=== PATIENT | male | born 1960 | race Caucasian/White ===

== ENCOUNTER 2017-08-06 14:29 | Emergency (ER) | payer OTHER ==
[2017-08-06] MEDS ORDERED: MEPERIDINE HCL 25 MG/0.5 ML ONE (15:17)
--- NOTE | 2017-08-06 15:17 | RAD REPORT ---
EXAM DESCRIPTION: CT - Stone Protocol - 08/06/2017 2:57 pm CLINICAL HISTORY: Flank pain. COMPARISON: 08/03/2016 TECHNIQUE: Axial images were obtained without oral or IV contrast. Lack of contrast limits solid org an and vascular assessment. The [id number] spans the entirety of the system partially obscuring uppermost abdomen and lung bases. Coronal reformatted images were obtained and reviewed. All CT scans are performed using dose optimization technique as appropriate and may include automated exposure control or mA/KV adjustment according to patient size. FINDINGS: The lower lung rodriguez are clear. Cholecystectomy clips. Imaged portions of the liver and spleen show no suspicious findings on non-contrast imaging. The panc reas and adrenal glands are normal. No pathologic lymphadenopathy in the abdomen or pelvis. No urinary tract stones or obstructive uropathy. No bowel obstruction, free air, free fluid or abscess. Normal appendix noted. No significant bony abnormality. IMPRESSION: No urinary tract stones or obstructive uropathy.
[2017-08-06 15:31] LABS: Absolute Lymphocytes (CBC) 1.3 K/uL (0.7-4.9); Absolute Monocytes 0.3 K/uL (0.1-1.3); Absolute Neutrophil 4.8 K/uL (1.8-8.0); Basophils % 0.7 % (0-1.3); Eosinophils % 1.9 % (0-4.4); Hematocrit 45.5 % (39.6-49.0); Lymphocytes % 19.7 % (15.3-44.8); MCV 83.9 fL (80-100); MPV 7.5 fL (7.6-11.3); Monocytes % 4.9 % (3.3-12.3); RBC Red Blood Cell Count 5.42 M/uL (4.33-5.43)
[2017-08-06 15:38] LABS: BUN Blood Urea Nitrogen 17 mg/dL (6-20); Bicarbonate 26 mEq/L (21-31); Glucose Level 171 mg/dL (65-120); Potassium 3.7 mEq/L (3.6-5.0); Sodium Level 136 mEq/L (135-145)
[2017-08-06] MEDS ORDERED: DEXAMETHASONE 10 MG/ML VIAL ONE (15:48)
[2017-08-06] MEDS ORDERED: CYCLOBENZAPRINE 10 MG TAB ONE (15:48)
--- NOTE | 2017-08-06 16:20 | ER ---
Nurse's Notes [facility] Name: Reji Keith Age: 57 yrs Sex: Male : 1960 Arrival Date: 08/06/2017 Time: 14:36 Bed 25 Private MD: Diagnosis: Radiculopathy, lumbar region Presentation: 08/06 14:38 Presenting complaint: Patient states: " I am having pain in my left lower back and goes ph down into my groin and my thigh." Pt reports that pain began Saturday, denies urinary symptoms, intermittent nausea, denies V/D. Transition of care: patient was not received from another setting of care. Onset of symptoms was August 06, 2017. Initial Sepsis Screen: Does the patient meet any 2 criteria? No. Patient's initial sepsis screen is negative. Does the patient have a suspected source of infection? No. Patient's initial sepsis screen is negative. Care prior to arrival: None. 14:38 Method Of Arrival: Ambulatory ph 14:38 Acuity: SELAM 3 ph Historical: - Allergies: 14:41 No Known Allergies; ph - Home Meds: 14:41 None [Active]; ph - PMHx: 14:41 Arthritis; enlarged prostate; ph - PSHx: 14:41 Cholecystectomy; ph - Immunization history:: Adult Immunizations up to date. - Social history:: Smoking status: . - Family history:: not pertinent. - Hospitalizations: : No recent hospitalization is reported. Screenin:59 Abuse screen: Denies threats or abuse. Nutritional screening: No deficits noted. mb3 Tuberculosis screening: No symptoms or risk factors identified. Fall Risk None identified. Assessment: 15:10 General: Appears comfortable, well groomed, Behavior is calm, cooperative, appropriate mb3 for age. Pain: Complains of pain in low back area and left low back Pain radiates to left leg Pain currently is 6 out of 10 on a pain scale. Neuro: No deficits noted. Cardiovascular: No deficits noted. Denies. Respiratory: No deficits noted. Airway is patent Respiratory effort is even, unlabored, Respiratory pattern is regular, symmetrical, Breath sounds are clear bilaterally. GI: Bowel sounds present X 4 quads. Abd is soft and non tender X 4 quads. : No signs and/or symptoms were reported regarding the genitourinary system. EENT: No signs and/or symptoms were reported regarding the EENT system. Derm: No signs and/or symptoms reported regarding the dermatologic system. Musculoskeletal: No signs and/or symptoms reported regarding the musculoskeletal system. Capillary refill < 3 seconds, Range of motion: intact in all extremities. 15:56 Reassessment: Patient appears in no apparent distress at this time. Patient and/or mb3 family updated on plan of care and expected duration. Pain level reassessed. Patient is alert, oriented x 3, equal unlabored respirations, skin warm/dry/pink. Patient states feeling better. Vital Signs: 14:40 BP 165 / 101; Pulse 76; Resp 16; Temp 98.0; Pulse Ox 97% on R/A; Weight 99.79 kg; ph Height 5 ft. 9 in. (175.26 cm); Pain 7/10; 17:03 BP 129 / 91; Pulse 79; Resp 16; Pulse Ox 96% on R/A; mb3 14:40 Body Mass Index 32.49 (99.79 kg, 175.26 cm) ph ED Course: 14:36 Patient arrived in ED. sv 14:36 Floyd Palma MD is Attending Physician. rn 14:40 Triage completed. ph 14:41 Arm band placed on. ph 14:[address] via wheelchair. sj 14:57 CT Stone Protocol In Process Unspecified. EDMS 15:13 Initial lab(s) drawn, by me, sent to lab. Inserted saline lock: 22 gauge in left aj1 forearm, using aseptic technique. Blood collected. 15:45 Flex Ferrara, RN is Primary Nurse. mb3 16:59 Patient has correct armband on for positive identification. Bed in low position. Call mb3 light in reach. Side rails up X 1. 17:00 No provider procedures requiring assistance completed. IV discontinued. mb3 Administered Medications: 15:21 Drug: Demerol 25 mg Route: IVP; Site: left forearm; aj1 15:45 Follow up: Response: No adverse reaction; Pain is decreased mb3 15:53 Drug: Decadron - Dexamethasone 10 mg Route: IVP; Site: left forearm; mb3 17:02 Follow up: Response: No adverse reaction; Pain is decreased mb3 15:53 Drug: Flexeril 10 mg Route: PO; mb3 17:02 Follow up: Response: No adverse reaction mb3 Outcome: 16:20 Discharge ordered by . rn 17:01 Discharged to home ambulatory, with family. mb3 17:01 Condition: stable 17:01 Discharge instructions given to patient, family, Instructed on discharge instructions, follow up and referral plans. medication usage, Demonstrated understanding of instructions, follow-up care, medications, Prescriptions given X 3. 17:03 Patient left the ED. mb3 Signatures: Dispatcher [employer] EDMS Mireya Alejandre RN RN aj1 Cecilia Henriquez RN RN Kayla Long Roman, MD MD rn Hall, Patricia RN RN Flex Myers RN RN mb3
--- NOTE | 2017-08-06 16:20 | EDPHYS ---
Physician Documentation [facility] Name: Reji Keith Age: 57 yrs Sex: Male : 1960 Arrival Date: 08/06/2017 Time: 14:36 Bed 25 Private MD: ED Physician Floyd Palma HPI: 08/06 15:46 This 57 yrs old Male presents to ER via Ambulatory with complaints of rn Possible Kidney Stone. 15:46 The patient presents with pain that is acute. The symptoms are located in the low back. rn 15:51 Onset: The symptoms/episode began/occurred 3 day(s) ago. The pain radiates to the left rn leg. Associated signs and symptoms: Pertinent negatives: abdominal pain, constipation, dysuria, fever, incontinence, nausea, numbness, tingling, urinary retention, vomiting, weakness. Severity of symptoms: At their worst the symptoms were moderate, in the emergency department the symptoms have improved. The patient has not experienced similar symptoms in the past. The patient has not recently seen a physician. Historical: - Allergies: 14:41 No Known Allergies; ph - Home Meds: 14:41 None [Active]; ph - PMHx: 14:41 Arthritis; enlarged prostate; ph - PSHx: 14:41 Cholecystectomy; ph - Immunization history:: Adult Immunizations up to date. - Social history:: Smoking status: . - Family history:: not pertinent. - Hospitalizations: : No recent hospitalization is reported. ROS: 15:51 Constitutional: Negative for fever, chills, and weight loss, Neck: Negative for injury, rn pain, and swelling, Cardiovascular: Negative for chest pain, palpitations, and edema, Respiratory: Negative for shortness of breath, cough, wheezing, and pleuritic chest pain, Abdomen/GI: Negative for abdominal pain, nausea, vomiting, diarrhea, and constipation, Back: Negative for injury MS/Extremity: Negative for injury and deformity, Skin: Negative for injury, rash, and discoloration, Neuro: Negative for headache, weakness, and seizure. Exam: 15:51 Constitutional: This is a well developed, well nourished patient who is awake, alert, rn and in no acute distress. Abdomen/GI: Soft, non-tender, with normal bowel sounds. No distension or tympany. No guarding or rebound. No evidence of tenderness throughout. Back: No spinal tenderness. No costovertebral tenderness. MS/ Extremity: Pulses equal, no cyanosis. Neurovascular intact. Full, normal range of motion. Equal circumference. Neuro: Awake and alert, GCS 15, oriented to person, place, time, and situation. Cranial nerves II-XII grossly intact. Motor strength 5/5 in all extremities. Sensory grossly intact. Vital Signs: 14:40 BP 165 / 101; Pulse 76; Resp 16; Temp 98.0; Pulse Ox 97% on R/A; Weight 99.79 kg; ph Height 5 ft. 9 in. (175.26 cm); Pain 7/10; 17:03 BP 129 / 91; Pulse 79; Resp 16; Pulse Ox 96% on R/A; mb3 14:40 Body Mass Index 32.49 (99.79 kg, 175.26 cm) ph MDM: 14:36 Patient medically screened. rn 16:19 Differential diagnosis: arthritis, Osteoarthritis sprain, Ureterolithiasis rn radiculopathy. Data reviewed: vital signs, nurses notes, lab test result(s), radiologic studies, CT scan, and as a result, I will discharge patient. Counseling: I had a detailed discussion with the patient and/or guardian regarding: the historical points, exam findings, and any diagnostic results supporting the discharge/admit diagnosis, lab results, radiology results, the need for outpatient follow up, to return to the emergency department if symptoms worsen or persist or if there are any questions or concerns that arise at home. Response to treatment: the patient's symptoms have mildly improved after treatment, and as a result, I will discharge patient. Special discussion: I discussed with the patient/guardian in detail that at this point there is no indication for admission to the hospital. It is understood, however, that if the symptoms persist or worsen the patient needs to return immediately for re-evaluation. 08/06 14:46 Order name: CBC with Diff; Complete Time: 16:41 rn 08/06 14:46 Order name: Basic Metabolic Panel; Complete Time: 16:19 rn 08/06 14:46 Order name: CT Stone Protocol; Complete Time: 15:22 rn 08/06 15:33 Order name: CBC Smear Scan; Complete Time: 16:41 EDMS 08/06 16:52 Order name: Urine Dipstick--Ancillary (enter results) em1 08/06 14:46 Order name: IV Start; Complete Time: 15:14 rn 08/06 14:46 Order name: Urine Dipstick-Ancillary (obtain specimen); Complete Time: 16:51 rn Administered Medications: 15:21 Drug: Demerol 25 mg Route: IVP; Site: left forearm; aj1 15:45 Follow up: Response: No adverse reaction; Pain is decreased mb3 15:53 Drug: Decadron - Dexamethasone 10 mg Route: IVP; Site: left forearm; mb3 17:02 Follow up: Response: No adverse reaction; Pain is decreased mb3 15:53 Drug: Flexeril 10 mg Route: PO; mb3 17:02 Follow up: Response: No adverse reaction mb3 Disposition: 08/06/17 16:20 Discharged to Home. Impression: Radiculopathy, lumbar region. - Condition is Stable. - Discharge Instructions: Lumbosacral Radiculopathy. - Prescriptions for Tylenol- Codeine #3 300-30 mg Oral Tablet - take 1 tablet by ORAL route every 6 hours As needed; 20 tablet. Cyclobenzaprine 10 mg Oral Tablet - take 1 tablet by ORAL route every 8 hours As needed; 20 tablet. Medrol (Canelo) 4 mg Oral Tablets, Dose Pack - take 1 tablet by ORAL route as directed - follow package instructions; 1 packet. - Medication Reconciliation Form, Thank You Letter, Antibiotic Education, Prescription Opioid Use form. - Follow up: Private Physician; When: As needed; Reason: Recheck today's complaints, Re-evaluation by your physician. - Problem is new. - Symptoms have improved. Signatures: Dispatcher [employer] EDMireya Godoy RN RN aj1 Floyd Palma MD MD rn Hall, Patricia, RN RN Flex Myers RN RN mb3 Corrections: (The following items were deleted from the chart) 17:03 16:20 08/06/2017 16:20 Discharged to Home. Impression: Radiculopathy, lumbar region. mb3 Condition is Stable. Forms are Medication Reconciliation Form, Thank You Letter, Antibiotic Education, Prescription Opioid Use. Follow up: Private Physician; When: As needed; Reason: Recheck today's complaints, Re-evaluation by your physician. Problem is new. Symptoms have improved. rn
[2017-08-06 16:28] LABS: Blood Morphology Comment NOT SEEN (NOT SEEN); Platelet Estimate ADEQ; Urine White Blood Cell Casts OK
[2017-08-06 17:04] LABS: Urine Blood NEGATIVE (NEG); Urine Glucose NEGATIVE (NEG); Urine Protein NEGATIVE (NEG); Urine Specific Gravity 1.025 (1.005-1.030); Urine pH 6.5 (5.0-7.0)
[2017-08-06 17:07] VITALS: BP 165/101; TEMP 98; O2SAT 97
== END 2017-08-06 17:03 | disposition home or self-care (01) ==
LOC: ER 14:29
DX: M54.16 Radiculopathy, lumbar region (principal); N40.0 Benign prostatic hyperplasia without lower urinary tract symptoms
CPT/HCPCS: 36415; 74176; 76377; 80048; 81003; 85025; 96374; 96375; 99284; J1100; J2175

== ENCOUNTER 2021-08-22 09:16 | Emergency (ER) | payer OTHER ==
--- OUTSIDE RECORDS SUMMARY | 2021-08-22 09:21 | XMS REPORT | Continuity of Care Document ---
:1960 Author Organization Formerly [facility] t Address [address] [place] [address] Care Team Providers Name Role Phone Nikita Grey MD Primary Care Physician Nikita Grey MD Attending Clinician Payers Payer Name Policy Type Policy Number Effective Date Expiration Date S ource Problems Condition Condition Condition Status Onset Resolution Last Treating Co mments Source Name Details Category Date Date Treatment Clinician Date Attention Attention Disease Active 2014-03 Uni vers deficit deficit 2- ity of disorder disorder 00:00: [facility] of adult 00 Medica l Branch Benign Benign Disease Active 2014-03 [facility] prostatic prostatic 2- it[place] hyperpl[place] [facility] Anxiety Anxiety Disease Active 2014-03 [facility] and and 2 [place] Allergies, Adverse Reactions, Alerts This patient has no known allergies or adverse reactions. Social History Social Habit Start Date Stop Date Quantity Comments Source Exposure to Not sure [facility] SARS-CoV-2 (event) Medica l Branch History SDOH [facility] [place] Alcohol Frequency Medical Branch History SDOH [facility] [place] Alcohol Std Drinks Medica l Branch History SDPA [facility] [place] Alcohol Binge Medical Bra [facility] Alcohol intake 2020-10-24 2020-10-24 0 /d [facility] 00:00:00 00:00:00 Medical Branch Tobacco use and 2015-03-16 2015-03-16 Never used [facility] exposure 00:00:00 00:00:00 Medical Branch Alcohol Comment 2015-03-16 2015-03-16 occ [facility] 00:00:00 00:00:00 Medical Branch Sex Ass[birth year] [facility] 00:00:00 00:00:00 Medical Branch Smoking Status Start Date Stop Date Source Never smoker [facility] Medical Branch Medications Ordered Filled Start Stop Current Ordering Indication Dosage Frequency Signature Comments Components Source Medication Medication Date Date Medication? Clinician (SIG) Name Name dextroamphe Yes [id number] 30mg Take 1 Univers tamine-amph 5-10 tablet by ity of etamine 00:00: [place] (ADDERALL) 00 daily. Medical 30 mg Branch tablet dextroamphe Yes [id number] 30mg Take 1 Univers tamine-amph 4-06 tablet by ity of etamine 00:00: [place] (ADDERALL) 00 daily. Medical 30 mg Branch tablet sildenafiL 2021-0 Yes [id number] 100mg Take 1 Univers 100 mg 4-06 tablet by ity of tablet 00:00: mouth [place] 00 needed Medical (take one Branch hour prior to sexual activitiy) . dextroamphe 2021-0 Yes [id number] 30mg Take 1 Univers tamine-amph 4-06 tablet by ity of etamine 00:00: mouth [place] (ADDERALL) 00 daily. Medical 30 mg Branch tablet sildenafiL 2021-0 Yes [id number] 100mg Take 1 Univers 100 mg 4-06 tablet by ity of tablet 00:00: mouth [place] 00 needed Medical (take one Branch hour prior to sexual activitiy) . sildenafiL 2021-0 Yes [id number] 100mg Take 1 Univers 100 mg 4-06 tablet by ity of tablet 00:00: mouth as [place] 00 needed Medical (take one Branch hour prior to sexual activitiy) . dextroamphe 2021-2021- No [id number] 30mg Take 1 Univers tamine-amph 4-06 05-10 tablet by it y of etamine 00:00: 00:00 mouth [place] (ADDERALL) 00 :00 daily. Medical 30 mg Branch tablet dextroamphe 2021-2021- No [id number] 30mg Take 1 Univers tamine-amph 3-07 04- tablet by it y of etamine 00:00: 00:00 mouth [place] (ADDERALL) 00 :00 daily. Medical 30 mg Branch tablet dextroamphe 2021- No [id number] 30mg Take 1 Univers tamine-amph 05-29- tablet by it y of etamine 00:00: 00:00 [facility] [place] (ADDERALL) 00 :00 daily. Medical 30 mg Branch tablet diclofenac 2020-03 Yes [id number] 75mg Take 1 Univers 75 mg EC 2-03 9104 tablet by ity of tablet 00:00: mouth [place] 00 daily. Medical Branch tamsulosin 2020-03 Yes [id number] .4mg Take 1 Univers 0.4 mg 24 2-03 capsule by ity of hr capsule 00:00: mouth at [place] 00 bedtime. Medical Branch SERTraline 2020-03 Yes [id number] 100mg Take 1 Univers 100 mg 2-03 tablet by ity of tablet 00:00: mouth [place] 00 daily. Medical Branch diclofenac 2020-03 Yes [id number] 75mg Take 1 Univers 75 mg EC 2-03 9104 tablet by ity of tablet 00:00: mouth [place] 00 daily. Medical Branch tamsulosin 2020-03 Yes [id number] .4mg Take 1 Univers 0.4 mg 24 2-03 capsule by ity of hr capsule 00:00: mouth at [place] 00 bedtime. Medical Branch SERTraline 2020-03 Yes [id number] 100mg Take 1 Univers 100 mg 2-03 tablet by ity of tablet 00:00: mouth [place] 00 daily. Medical Branch diclofenac 2020-03 Yes [id number] 75mg Take 1 Univers 75 mg EC 2-03 9104 tablet by ity of tablet 00:00: mouth [place] 00 daily. Medical Branch tamsulosin 2020-03 Yes [id number] .4mg Take 1 Univers 0.4 mg 24 2-03 capsule by ity of hr capsule 00:00: mouth at [place] 00 bedtime. Medical Branch SERTraline 2020-03 Yes [id number] 100mg Take 1 Univers 100 mg 2-03 tablet by ity of tablet 00:00: mouth [place] 00 daily. Medical Branch TADALAFIL 5 2020-03- No [id number] 5mg TAKE 1 Univers mg tablet 0-04 04-06 TABLET BY ity of 00:00: 00:00 MOUTH [place] 00 :00 NEEDED FOR [facility] ERECTILE Branch DYSFUNCTIO N TADALAFIL 5 2020-03- No [id number] 5mg TAKE 1 Univers mg tablet 06-28 TABLET BY ity of 00:00: 00:00 MOUTH [place] 00 :00 NEEDED FOR [facility] ERECTILE Branch DYSFUNCTIO N Immunizations Ordered Filled Immunization Date Status Comments Sour e Immunization Name Name SARS-COV-2 COVID-19 2020-06-01 Completed Unive rsity of PFIZER VACCINE 00:00:00 [facility] SARS-COV-2 COVID-19 2020-06-01 Completed Unive rsity of PFIZER VACCINE 00:00:00 [facility] SARS-COV-2 COVID-19 2020-06-01 Completed Unive rsity of PFIZER VACCINE 00:00:00 [facility] Vital Signs Vital Name Observation Time Observation Value Comments Source Systolic blood 2021-06-28 21:14:00 149 mm[Hg] [facility] Diastolic blood 2021-06-28 21:14:00 87 mm[Hg] Unive rsity of [facility] Heart rate 2021-06-28 21:10:00 87 /min [facility] Body height 2021-06-28 21:10:00 175.3 cm [facility] Body weight 2021-06-28 21:10:00 93.895 kg [facility] BMI 2021-06-28 21:10:00 30.57 kg/m2 [facility] Procedures This patient has no known procedures. Encounters Start End Encounter Admission Attending Care Care Encounter Source Date/Time Date/Time Type Type Clinicians Facility Department ID 2021-08-01 2021-08-01 Refill DAYANNA Grey [id number] Univers 00:00:00 00:00:00 [facility] [id number] it y of Nikita ANAYA [id number] [place] RIA?BLEA [id number] [address] MEDICAL OFFICE BUILDING 2021-06-28 2021-06-28 Office DAYANNA Grey [id number] Univers 16:00:00 16:15:00 Visit [facility] [id number] it y of Nikita ANAYA [id number] [place] RIA?BLEA [id number] [facility] [facility] [address] MEDICAL OFFICE BUILDING Results This patient has no known results.
--- NOTE | 2021-08-22 10:06 | RAD REPORT ---
EXAM DESCRIPTION: RAD - Shoulder Right 2 View - 08/22/2021 10:01 am CLINICAL HISTORY: PAIN COMPARISON: No comparisons FINDINGS/IMPRESSION: No acute fracture. No malalignment. No significant focal degenerative changes. Calcified nodules overlying the right upper lobe.
--- NOTE | 2021-08-22 10:36 | EDPHYS ---
Physician Documentation [facility] Name: Reji Keith Age: 61 yrs Sex: Male : 1960 Arrival Date: 08/22/2021 Time: 09:20 Bed 10 Private MD: Emanuel Grey ED Physician Benji Neves HPI: 08/22 10:00 This 61 yrs old Male presents to ER via Ambulatory with complaints of Shoulder Injury. ms3 10:00 The patient or guardian complains of pain, that is acute. right shoulder. Context: The ms3 problem was sustained at home, resulted from a fall, from a standing position, The patient reports no decreased range of motion. The patient reports no obvious deformity. Onset: The symptoms/episode began/occurred last night. Modifying factors: the symptoms are alleviated by nothing. The symptoms are aggravated by movement. Associated signs and symptoms: Pertinent negatives: chest pain, neck pain. Severity of symptoms: At their worst the symptoms were severe, in the emergency department the symptoms have improved, moderately. Historical: - Allergies: :28 No Known Allergies; iw - PMHx: :28 Arthritis; enlarged prostate; iw - Social history:: Smoking status: . ROS: 10:00 Constitutional: Negative for fever, and chills. Neck: Negative for injury, pain, and ms3 swelling, Cardiovascular: Negative for chest pain, and palpitations. Respiratory: Negative for shortness of breath, cough, wheezing, and pleuritic chest pain, Abdomen/GI: Negative for abdominal pain, nausea, vomiting, diarrhea, and constipation, Skin: Negative for injury, rash, and discoloration. 10:00 MS/extremity: Positive for pain, tenderness. 10:00 All other systems are negative. Exam: 10:00 Constitutional: This is a well developed, well nourished patient who is awake, alert, ms3 and in no acute distress. Neck: Trachea midline, no cervical lymphadenopathy. Supple, full range of motion without nuchal rigidity, or vertebral point tenderness. No Meningismus. Chest/axilla: Normal chest wall appearance and motion. Nontender with no deformity. Cardiovascular: Regular rate and rhythm with a normal S1 and S2. No gallops, murmurs, or rubs. Normal PMI, no JVD. No pulse deficits. Respiratory: Lungs have equal breath sounds bilaterally, clear to auscultation and percussion. No rales, rhonchi or wheezes noted. No increased work of breathing, no retractions or nasal flaring. Abdomen/GI: Soft, non-tender, with normal bowel sounds. No distension or tympany. No guarding or rebound. No evidence of tenderness throughout. 10:00 Skin: Warm, dry with normal turgor. Normal color with no rashes, no lesions, and no evidence of cellulitis. Psych: Awake, alert, with orientation to person, place and time. Behavior, mood, and affect are within normal limits. 10:00 Musculoskeletal/extremity: Extremities: noted in the right shoulder: pain, tenderness. Vital Signs: 09:26 BP 181 / 96; Pulse 80; Resp 16; Temp 98.2; Pulse Ox 97% on R/A; Weight 95.25 kg; Height iw 5 ft. 9 in. (175.26 cm); Pain 9; 09:26 Body Mass Index 31.01 (95.25 kg, 175.26 cm) iw MDM: 09:35 Patient medically screened. ms3 10:00 Differential diagnosis: humeral head fracture, glenoid fracture, AC Separation vs ms3 Clavicle fracture. 10:47 Data reviewed: vital signs, nurses notes, radiologic studies, plain films. Data ms3 interpreted: Pulse oximetry: on room air is 97 %. Interpretation: normal. Counseling: I had a detailed discussion with the patient and/or guardian regarding: the historical points, exam findings, and any diagnostic results supporting the discharge/admit diagnosis, radiology results, the need for outpatient follow up, to return to the emergency department if symptoms worsen or persist or if there are any questions or concerns that arise at home. ED course: Discussed right shoulder x-ray, physical exam findings with patient. Patient to follow-up with in 2 to 3 days. Patient understands and agrees with plan. All questions were answered. Return precautions discussed include worsening symptoms, or any other concerns. On reevaluation patient symptoms improved, patient is alert and oriented x4, no apparent distress, nontoxic, ambulatory in emergency department, tolerating p.o.. 08/22 09:35 Order name: Shoulder Right (2 View) XRAY; Complete Time: 10:29 ms3 08/22 10:36 Order name: Sling; Complete Time: 10:49 ms3 Administered Medications: No medications were administered Disposition Summary: 08/22/21 10:35 Discharge Ordered Location: Home ms3 Problem: new ms3 Symptoms: are unchanged ms3 Condition: Stable ms3 Diagnosis - Pain in right shoulder ms3 - Fall on same level, unspecified ms3 Followup: ms3 - With: Edgar Contreras MD - When: 2 - 3 days - Reason: Recheck today's complaints Discharge Instructions: - Discharge Summary Sheet ms3 - Musculoskeletal Pain ms3 - Shoulder Pain ms3 Forms: - Medication Reconciliation Form ms3 - Thank You Letter ms3 - Antibiotic Education ms3 - Prescription Opioid Use ms3 Prescriptions: - Ibuprofen 600 mg Oral Tablet - take 1 tablet by ORAL route every 6 hours As needed take with food; 30 tablet; ms3 Refills: 0, Product Selection Permitted Signatures: Dispatcher [employer] Clementine James RN RN iw Sims, Marcus, DO DO ms3
--- NOTE | 2021-08-22 10:36 | ER ---
Nurse's Notes [facility] Name: Reji Keith Age: 61 yrs Sex: Male : 1960 Arrival Date: 08/22/2021 Time: 09:20 Bed 10 Private MD: Emanuel Grey Diagnosis: Pain in right shoulder;Fall on same level, unspecified Presentation: 08/22 09:26 Chief complaint: Patient states: slipped and fell on right shoulder last night while iw cleaning his pool. Coronavirus screen: At this time, the client does not indicate any symptoms associated with coronavirus-19. Ebola Screen: Patient negative for fever greater than or equal to 101.5 degrees Fahrenheit, and additional compatible Ebola Virus Disease symptoms Patient denies exposure to infectious person. Patient denies travel to an Ebola-affected area in the 21 days before illness onset. No symptoms or risks identified at this time. Initial Sepsis Screen: Does the patient meet any 2 criteria? No. Patient's initial sepsis screen is negative. Does the patient have a suspected source of infection? No. Patient's initial sepsis screen is negative. Risk Assessment: Do you want to hurt yourself or someone else? Patient reports no desire to harm self or others. Onset of symptoms was August 21, 2021. 09:26 Method Of Arrival: Ambulatory iw 09: Acuity: SELAM 4 iw Historical: - Allergies: : No Known Allergies; iw - PMHx: : Arthritis; enlarged prostate; iw - Social history:: Smoking status: . Screenin: Abuse screen: Denies threats or abuse. Denies injuries from another. Nutritional iw screening: No deficits noted. Tuberculosis screening: No symptoms or risk factors identified. Fall Risk None identified. Assessment: :30 General: Appears in no apparent distress. Behavior is calm, cooperative. Pain: iw Complains of pain in anterior aspect of right shoulder and posterior aspect of right shoulder. Musculoskeletal: Range of motion: limited in right shoulder. Vital Signs: : BP 181 / 96; Pulse 80; Resp 16; Temp 98.2; Pulse Ox 97% on R/A; Weight 95.25 kg; Height iw 5 ft. 9 in. (175.26 cm); Pain 9/10; : Body Mass Index 31.01 (95.25 kg, 175.26 cm) iw ED Course: 09:20 Patient arrived in ED. mr 09:20 Emanuel Grey MD is Private Physician. mr 09:22 Benji Neves DO is Attending Physician. ms3 09:28 Triage completed. iw 09:28 Arm band placed on. iw 09:30 Clementine Macdonald, RN is Primary Nurse. iw 09:31 No provider procedures requiring assistance completed. Patient did not have IV access iw during this emergency room visit. 10:02 Shoulder Right (2 View) XRAY In Process Unspecified. EDMS 10:35 Edgar Contreras MD is Referral Physician. ms3 Administered Medications: No medications were administered Outcome: 10:35 Discharge ordered by . ms3 10:49 Patient left the ED. iw Signatures: Dispatcher [employer] EDOH VincenzoTamika mr Clementine Macdonald, RN RN iw Benji Neves DO DO ms3
[2021-08-22 10:56] VITALS: BP 181/96; TEMP 98.2; O2SAT 97
== END 2021-08-22 10:49 | disposition home or self-care (01) ==
LOC: ER 09:16
DX: M25.511 Pain in right shoulder (principal); W18.30XA Fall on same level, unspecified, initial encounter
CPT/HCPCS: 99282

== ENCOUNTER 2022-04-28 17:06 | Emergency (ER) | payer OTHER ==
--- OUTSIDE RECORDS SUMMARY | 2022-04-28 17:09 | XMS REPORT | Continuity of Care Document ---
:1960 Author Organization [facility] t Address [address] [place] [address] Care Team Providers Name Role Phone DELORES GREY Primary Care Physician Unavailable DELORES GREY Attending Clinician Unavailable Delores Grey MD Attending Clinician Doctor Unassigned, [place] Attending Clinician Unavailable Too Smiley DO Attending Clinician Romulo Larsen Attending Clinician Lacie SPEARS, Bill Coffman Attending Clinician Payers Payer Name Policy Type Policy Number Effective Date Expiration Date Cheryl arana [employer] [id number] 2018 OUT OF NETWORK 00:00:00 Problems Condition Condition Condition Status Onset Resolution Last Treating Co mments Source Name Details Category Date Date Treatment Clinician Date Attention Attention Disease Active 2014-03 Uni vers deficit deficit 2-23 ity of disorder disorder 00:00: [place] of adult of adult 00 Medica l Branch Benign Benign Disease Active 2014-03 Univers prostatic prostatic 2- it[place] of hyper[place] Anxiety Anxiety Disease Active 2014-03 Univers and and 2 [place] depression [place] Allergies, Adverse Reactions, Alerts Allergy Allergy Status Severity Reaction(s) Onset Inactive Treating Comm ents Source Name Type Date Date Clinician NO KNOWN Drug Active Univers ALLERGIE Class ity of S [facility] Social History Social Habit Start Date Stop Date Quantity Comments Source History [facility] o f Alcohol Frequency [place] M edical Branch History [facility] o f Alcohol Std [place] Medical Drinks Branch History [facility] o f Alcohol Binge [place] Medic al Branch Exposure to 2022-03-25 2022-04-04 Not sure University of SARS-CoV-2 00:00:00 15:37:00 [facility] (event) Branch Alcohol intake 2020-10-24 2020-10-24 0 /d University of 00:00:00 00:00:00 [facility] Tobacco use and 2015-03-16 2015-03-16 Smokeless tobacco Un iversity of exposure 00:00:00 00:00:00 non-user [facility] Alcohol Comment 2015-03-16 2015-03-16 occ Universit y of 00:00:00 00:00:00 [facility] Sex Ass[birth year] At [birth year] Universit y of 00:00:00 00:00:00 [facility] Smoking Status Start Date Stop Date Source Never smoked tobacco [facility] Medications Ordered Filled Start Stop Current Ordering Indication Dosage Frequency Signature Comments Components Source Medication Medication Date Date Medication? Clinician (SIG) Name Name amphetamine Yes [id number] 30mg Take 1 Univers -dextroamph 1-11 capsule by it y of etamine 00:00: mouth [place] (ADDERALL 00 every Medical XR) 30 mg morning. Branch 24 hr capsule amphetamine Yes [id number] 30mg Take 1 Univers -dextroamph 1-11 capsule by it y of etamine 00:00: mouth [place] (ADDERALL 00 every Medical XR) 30 mg morning. Branch 24 hr capsule TAMSULOSIN Yes [id number] TAKE 1 Univers 0.4 mg 24 -09 CAPSULE BY ity of hr capsule 00:00: MOUTH [place] 00 EVERYDAY Medical AT BEDTIME Branch TAMSULOSIN Yes [id number] TAKE 1 Univers 0.4 mg 24 -09 CAPSULE BY ity of hr capsule 00:00: MOUTH [place] 00 EVERYDAY Medical AT BEDTIME Branch TAMSULOSIN Yes [id number] TAKE 1 Univers 0.4 mg 24 -09 CAPSULE BY ity of hr capsule 00:00: MOUTH 00 EVERYDAY Medical AT BEDTIME Branch dextroamphe 2021-03 Yes [id number] 30mg Take 1 Univers tamine-amph 2-08 tablet by ity of etamine 00:00: mouth in [place] (ADDERALL) 00 the Medical 30 mg morning. Branch tablet diclofenac 2021-03 Yes [id number] 75mg Take 1 Univers 75 mg EC 2-08 9104 tablet by ity of tablet 00:00: mouth in [place] 00 the Medical morning. Branch dextroamphe 2021-03 Yes [id number] 30mg Take 1 Univers tamine-amph 2-08 tablet by ity of etamine 00:00: mouth in [place] (ADDERALL) 00 the Medical 30 mg morning. Branch tablet diclofenac 2021-03 Yes [id number] 75mg Take 1 Univers 75 mg EC 2-08 9104 tablet by ity of tablet 00:00: mouth in [place] 00 the Medical morning. Branch dextroamphe 2021-03 Yes [id number] 30mg Take 1 Univers tamine-amph 2-08 tablet by ity of etamine 00:00: mouth in [place] [facility] the Medical 30 mg morning. Branch tablet diclofenac 2021-03 Yes [id number] 75mg Take 1 Univers 75 mg EC 2-08 9104 tablet by ity of tablet 00:00: mouth in [place] 00 the Medical morning. Branch diclofenac 2021-03 Yes [id number] 75mg Take 1 Univers 75 mg EC 2-08 9104 tablet by ity of tablet 00:00: mouth in [place] 00 the Medical morning. Branch diclofenac 2021-03 Yes [id number] 75mg Take 1 Univers 75 mg EC 2-08 9104 tablet by ity of tablet 00:00: mouth in [place] 00 the Medical morning. Branch dextroamphe 2021-03- No [id number] 30mg Take 1 Univers tamine-amph 2-08 -11 tablet by it y of etamine 00:00: 00:00 mouth in [place] (ADDERALL) 00 :00 the Medical 30 mg morning. Branch tablet dextroamphe 2021-03- No [id number] 30mg Take 1 Univers tamine-amph 2-08 -11 tablet by it y of etamine 00:00: 00:00 mouth in [place] (ADDERALL) 00 :00 the Medical 30 mg morning. Branch tablet dextroamphe 2021-03 Yes [id number] 30mg Take 1 Univers tamine-amph 1-10 tablet by ity of etamine 00:00: mouth in [place] (ADDERALL) 00 the Medical 30 mg morning. Branch tablet dextroamphe 2021-03- No [id number] 30mg Take 1 Univers tamine-amph 1-10 12-08 tablet by it y of etamine 00:00: 00:00 mouth in [place] (ADDERALL) 00 :00 the Medical 30 mg morning. Branch tablet dextroamphe 2021-03- No [id number] 30mg Take 1 Univers tamine-amph 0-11 11-10 tablet by it y of etamine 00:00: 00:00 mouth in [place] (ADDERALL) 00 :00 the Medical 30 mg morning. Branch tablet dextroamphe 2021-0 Yes [id number] 30mg Take 1 Univers tamine-amph 9-12 tablet by ity of etamine 00:00: mouth in [place] [facility] the Medical 30 mg morning. Branch tablet dextroamphe 2021-0 Yes [id number] 30mg Take 1 Univers tamine-amph 9-12 tablet by ity of etamine 00:00: mouth in [place] (ADDERALL) 00 the Medical 30 mg morning. Branch tablet DICLOFENAC 2021-0 Yes [id number] TAKE 1 Univers 75 mg EC 8-31 9104 TABLET BY ity of tablet 00:00: MOUTH [place] 00 EVERY DAY Medical Branch DICLOFENAC 2021-0 Yes [id number] TAKE 1 Univers 75 mg EC 8-31 9104 TABLET BY ity of tablet 00:00: MOUTH [place] 00 EVERY DAY Medical Branch DICLOFENAC 2-0 Yes [id number] TAKE 1 Univers 75 mg EC 8-31 9104 TABLET BY ity of tablet 00:00: MOUTH [place] 00 EVERY DAY Medical Branch DICLOFENAC 2-0 2021- No [id number] TAKE 1 Univers 75 mg EC 8-31 12-08 9104 TABLET BY ity o f tablet 00:00: 00:00 MOUTH [place] 00 :00 EVERY DAY Medical Branch dextroamphe 2021-0 2021- No [id number] 30mg Take 1 Univers tamine-amph 8-08 09-12 tablet by it y of etamine 00:00: 00:00 mouth in [place] (ADDERALL) 00 :00 the Medical 30 mg morning. Branch tablet sildenafiL 2021-0 Yes [id number] 100mg Take 1 Univers 100 mg 4-06 tablet by ity of tablet 00:00: mouth as [place] 00 needed Medical (take one Branch hour prior to sexual activitiy) . sildenafiL 2021-0 Yes [id number] 100mg Take 1 Univers 100 mg 4-06 tablet by ity of tablet 00:00: mouth as [place] 00 needed Medical (take one Branch hour prior to sexual activitiy) . sildenafiL 2021-0 Yes [id number] 100mg Take 1 Univers 100 mg 4-06 tablet by ity of tablet 00:00: mouth as [place] 00 needed Medical (take one Branch hour prior to sexual activitiy) . sildenafiL 2021-0 Yes [id number] 100mg Take 1 Univers 100 mg 4-06 tablet by ity of tablet 00:00: mouth as [place] 00 needed Medical (take one Branch hour prior to sexual activitiy) . sildenafiL 2021-0 Yes [id number] 100mg Take 1 Univers 100 mg 4-06 tablet by ity of tablet 00:00: mouth as [place] 00 needed Medical (take one Branch hour prior to sexual activitiy) . sildenafiL 2021-0 Yes [id number] 100mg Take 1 Univers 100 mg 4-06 tablet by ity of tablet 00:00: mouth as [place] 00 needed Medical (take one Branch hour prior to sexual activitiy) . sildenafiL 2021-0 Yes [id number] 100mg Take 1 Univers 100 mg 4-06 tablet by ity of tablet 00:00: mouth as [place] 00 needed Medical (take one Branch hour prior to sexual activitiy) . sildenafiL 2021-0 Yes [id number] 100mg Take 1 Univers 100 mg 4-06 tablet by ity of tablet 00:00: mouth as [place] 00 needed Medical (take one Branch hour prior to sexual activitiy) . tamsulosin 2020-03 Yes [id number] .4mg Take 1 Univers 0.4 mg 24 2-03 capsule by ity of hr capsule 00:00: mouth at [place] 00 bedtime. Medical Branch SERTraline 2020-03 Yes [id number] 100mg Take 1 Univers 100 mg 2-03 tablet by ity of tablet 00:00: mouth [place] 00 daily. Medical Branch tamsulosin 2020-03 Yes [id number] .4mg Take 1 Univers 0.4 mg 24 2-03 capsule by ity of hr capsule 00:00: mouth at [place] 00 bedtime. Medical Branch SERTraline 2020-03 Yes [id number] 100mg Take 1 Univers 100 mg 2-03 tablet by ity of tablet 00:00: mouth [place] 00 daily. Medical Branch tamsulosin 2020-03 Yes [id number] .4mg Take 1 Univers 0.4 mg 24 2-03 capsule by ity of hr capsule 00:00: mouth at [place] 00 bedtime. Medical Branch SERTraline 2020-03 Yes [id number] 100mg Take 1 Univers 100 mg 2-03 tablet by ity of tablet 00:00: mouth [place] 00 daily. Medical Branch tamsulosin 2020-03 Yes [id number] .4mg Take 1 Univers 0.4 mg 24 2-03 capsule by ity of hr capsule 00:00: mouth at [place] 00 bedtime. Medical Branch SERTraline 2020-03 Yes [id number] 100mg Take 1 Univers 100 mg 2-03 tablet by ity of tablet 00:00: mouth [place] 00 daily. Medical Branch tamsulosin 2020-03 Yes [id number] .4mg Take 1 Univers 0.4 mg 24 2-03 capsule by ity of hr capsule 00:00: mouth at [place] 00 bedtime. Medical Branch SERTraline 2020-03 Yes [id number] 100mg Take 1 Univers 100 mg 2-03 tablet by ity of tablet 00:00: mouth [place] 00 daily. Medical Branch SERTraline 2020-03 Yes [id number] 100mg Take 1 Univers 100 mg 2-03 tablet by ity of tablet 00:00: mouth [place] 00 daily. Medical Branch SERTraline 2020-03 Yes [id number] 100mg Take 1 Univers 100 mg 2-03 tablet by ity of tablet 00:00: mouth [place] 00 daily. Medical Branch SERTraline 2020-03 Yes [id number] 100mg Take 1 Univers 100 mg 2-03 tablet by ity of tablet 00:00: mouth [place] 00 daily. Medical Branch tamsulosin 2020-033- No [id number] .4mg Take 1 Univers 0.4 mg 24 2-03 01-09 capsule by ity of hr capsule 00:00: 00:00 [place] :00 bedtime. Medical Branch Immunizations Ordered Filled Immunization Date Status Comments [facility] e Immunization Name Name SARS-COV-2 COVID-19 2020-06-01 Completed Unive rsity of PFIZER VACCINE 00:00:00 [facility] SARS-COV-2 COVID-19 2020-06-01 Completed Unive rsity of PFIZER VACCINE 00:00:00 [facility] SARS-COV-2 COVID-19 2020-06-01 Completed Unive rsity of PFIZER VACCINE 00:00:00 [facility] SARS-COV-2 COVID-19 2020-06-01 Completed Unive rsity of PFIZER VACCINE 00:00:00 [facility] SARS-COV-2 COVID-19 2020-06-01 Completed Unive rsity of PFIZER VACCINE 00:00:00 [facility] SARS-COV-2 COVID-19 2020-06-01 Completed Unive rsity of PFIZER VACCINE 00:00:00 [facility] SARS-COV-2 COVID-19 2020-06-01 Completed Unive rsity of PFIZER VACCINE 00:00:00 [facility] SARS-COV-2 COVID-19 2020-06-01 Completed Unive rsity of PFIZER VACCINE 00:00:00 [facility] Vital Signs Vital Name Observation Time Observation Value Comments Source Systolic blood 2022-04-04 22:01:00 166 mm[Hg] Univer sity of [facility] Diastolic blood 2022-04-04 22:01:00 92 mm[Hg] Unive rsity of [facility] Heart rate 2022-04-04 21:56:00 89 /min [facility] Body height 2022-04-04 21:56:00 175.3 cm [facility] Body weight 2022-04-04 21:56:00 95.255 kg [facility] BMI 2022-04-04 21:56:00 31.01 kg/m2 [facility] Systolic blood 2021-12-04 21:10:00 147 mm[Hg] Univer sity of [facility] Diastolic blood 2021-12-04 21:10:00 86 mm[Hg] Unive rsity of [facility] Heart rate 2021-12-04 21:06:00 89 /min [facility] Body height 2021-12-04 21:06:00 175.3 cm [facility] Body weight 2021-12-04 21:06:00 97.977 kg [facility] BMI 2021-12-04 21:06:00 31.90 kg/m2 [facility] Procedures Procedure Date / Time Performing Clinician Source Performed EXTERNAL PROVIDER RECORDS 2022-03-30 06:01:00 Doctor Ivette, [facility] [place] [facility] PATIENT FINANCIAL 2021-12-04 05:01:00 Doctor Ivette [facility] RESPONSIBILITY - ALL [place] [facility] FORMS Encounters Start End Encounter Admission Attending Care Care Encounter Source Date/Time Date/Time Type Type Clinicians Facility Department ID 2022-08-02 2022-08-02 Outpatient Komal [facility] [id number] Univers 16:30:00 16:30:00 [facility] 2022-04-04 2022-04-04 Office [facility] 1.2.840.114 [id number] Univers 16:00:00 16:15:00 Visit [facility] [id number] it y of [facility] [id number] [place] CÉSAR?BLEA [phone] [address] MEDICAL OFFICE BUILDING 2022-04-04 2022-04-04 Outpatient [facility] [id number] Univers 16:00:00 16:13:03 [facility] 2022-04-01 2022-04-01 Refill [facility] 1.2.840.114 [id number] Univers 00:00:00 00:00:00 [facility] [id number] it y of [facility] [id number] [place] CÉSAR?BLEA [phone] [address] MEDICAL OFFICE BUILDING 2022-03-30 2022-03-30 Orders Doctor LIM 1.2.840.114 [id number] Univers 00:00:00 00:00:00 Only Unassigned, CANDACE [id number] ity of [place] [facility] [id number] [place] [phone] [address] 2022-03-01 2022-03-01 Telephone [facility] 1.2.840.114 [id number] Univers 00:00:00 00:00:00 [facility] [id number] it y of [place] [id number] [place] CÉSAR?BLEA [id number] [address] MEDICAL OFFICE [facility] 2022-01-31 2022[facility]01-31 [facility] 1.2.840.114 [id number] Univers 00:00:00 00:00:00 [facility] [id number] it y of [place] [id number] [place] CÉSAR?BLEA [phone] [address] MEDICAL OFFICE [facility] 2021-12-04 2021-12-04 Outpatient R [facility] [id number] Univers 15:45:00 16:22:27 DELORES [facility] 2021-12-04 2021-12-04 Office [facility] 1.2.840.114 [id number] Univers 15:45:00 16:00:00 Visit [facility] [id number] it y of [place] [id number] [place] CÉSAR?BLEA [phone] [address] OFFICE [facility] 2021-12-04 2021-12-04 Outpatient R [facility] [id number] Univers 15:45:00 15:45:00 DELORES ity [facility] 2021-12-04 2021-12-04 Orders Doctor CARINA 1.2.840.114 [id number] Univers 00:00:00 00:00:00 Only Unassigned, CANDACE [id number] ity of [place] [facility] [id number] [place] [phone] [address] 2021-12-01 2021-12-01 [facility] 1.2.840.114 [id number] Univers 00:00:00 00:00:00 [facility] [id number] it y of [place] [id number] [place] CÉSAR?BLEA [phone] [address] MEDICAL OFFICE [facility] 2021-11-28 2021-11-28 [facility] 1.2.840.114 [id number] Univers 00:00:00 00:00:00 [facility] [id number] it y of [place] [id number] [place] CÉSAR?BLEA [phone] [address] MEDICAL OFFICE [facility] 2021-11-22 2021-11-22 [facility] 1.2.840.114 [id number] Univers 00:00:00 00:00:00 [facility] [id number] it y of [place] [id number] [place] CÉSAR?BLEA [phone] [address] OFFICE [facility] 2021-10-30 2021-10-30 [facility] 1.2.840.114 [id number] Univers 00:00:00 00:00:00 [facility] [id number] it y of [place] [id number] [place] CÉSAR?BLEA [id number] [address] OFFICE [facility] 2021-09-29 2021-09-29 [facility] 1.2.840.114 [id number] Univers 00:00:00 00:00:00 [facility] [id number] it y of [place] [id number] [place] CÉSAR?BLEA [phone] [address] MEDICAL OFFICE [facility] 2021-08-28 2021-08-28 Orders Doctor CARINA 1.2.840.114 [id number] Univers 00:00:00 00:00:00 Only Unassigned, CANDACE [id number] ity of [place] [facility] [id number] [place] [phone] [address] 2021-08-28 2021-08-28 [facility] 1.2.840.114 [id number] Univers 00:00:00 00:00:00 [place] [id number] it y of [place] [id number] [place] CÉSAR?BLEA [id number] [address] MEDICAL OFFICE [facility] 2021-08-24 2021-08-24 [facility] 1.2.840.114 [id number] Univers 00:00:00 00:00:00 [facility] [id number] it y of [place] [id number] [place] CÉSAR?BLEA [phone] [address] OFFICE [facility] 2021-08-01 2021-08-01 [facility] 1.2.840.114 [id number] Univers 00:00:00 00:00:00 [place] [id number] it y of [place] [id number] [place] CÉSAR?BLEA [phone] [address] OFFICE [facility] 2021-06-28 2021-06-28 [facility] 1.2.840.114 [id number] Univers 16:00:00 16:15:00 Visit [place] [id number] it y of [place] [id number] [place] CÉSAR?BLEA [id number] [address] OFFICE [facility] 2021-06-28 2021-06-28 Outpatient [facility] [id number] Univers 16:00:00 16:00:00 [facility] 2021-06-23 2021-06-23 Outpatient [facility] [id number] Univers 16:30:00 16:30:00 [facility] 2021-04-26 2021-04-26 [facility] 1.2.840.114 [id number] Univers 00:00:00 00:00:00 [place] [id number] it y of [place] [id number] [place] CÉSAR?BLEA [phone] Sd nav [facility] [address] [place] [address] MEDICAL OFFICE BUILDING 2021-03-27 2021-03-27 [facility] 1.2.840.114 [id number] Univers 00:00:00 00:00:00 [facility] [id number] it y of [place] [id number] [place] as CÉSAR?BLEA [phone] Sd nav [place] [address] [place] [address] OFFICE [facility] 2021-02-24 2021-02-24 Office [facility] 1.2.840.114 [id number] Univers 16:13:55 16:28:55 Visit [facility] [id number] it y of [place] [id number] [place] CÉSAR?BLEA [phone] Sd nav [place] [address] [place] [address] OFFICE [facility] 2021-02-24 2021-02-24 [facility] [id number] Univers 16:00:00 16:00:00 DELORES [facility] 2021-01-28 2021-01-28 [facility] 1.2.840.114 [id number] Univers 00:00:00 00:00:00 [facility] [id number] it y of [place] [id number] [place] CÉSAR?BLEA [phone] Sd nav [place] [address] [place] [address] OFFICE [facility] 2021-01-24 2021-01-24 [facility] 1.2.840.114 [id number] Univers 00:00:00 00:00:00 [facility] [id number] it y of [place] 4.2.7.2.686 [place] as PROFESSIO [phone] Sd nav GONZÁLES [address] [place] [address] OFFICE [facility] ONE 2021-01-20 2021-01-20 [facility] 1.2.840.114 [id number] Univers 00:00:00 00:00:00 [facility] [id number] it y of [place] 4.2.7.2.686 [place] CÉSAR?BLEA [phone] Sd dical [address] MEDICAL OFFICE [facility] 2020-12-26 2020-12-26 [facility] 1.2.840.114 [id number] [facility] 00:00:00 00:00:00 [facility] [id number] it y of [place] 4.2.7.2.686 [place] as César?Blea [phone] [address] Office [facility] 2020-12-24 2020-12-24 [facility] 1.2.840.114 [id number] Univers 00:00:00 00:00:00 [facility] 350.1.13.10 it y of [place] [id number] [place] Professio [phone] [address] Office [facility] One 2020-11-25 2020-11-25 Telephone [facility] 1.2.840.114 [id number] Univers 00:00:00 00:00:00 [facility] 350.1.13.10 it y of [place] [id number] [place] as César?Blea [phone] [address] Office [facility] 2020-11-21 2020-11-21 Telephone [facility] 1.2.840.114 [id number] [facility] 00:00:00 00:00:00 [facility] [id number] it y of [place] [id number] [place] as César?Blea [phone] [address] Office [facility] 2020-10-24 2020-10-24 Office [facility] 1.2.840.114 [id number] [facility] 16:14:52 16:29:52 Visit [facility] [id number] it y of [place] [id number] [place] Professio [phone] [address] Office [facility] 2020-10-24 2020-10-24 Outpatient R [facility] [id number] [facility] 16:15:00 16:15:00 DELORES ity of [facility] 2020-10-24 2020-10-24 Orders Doctor CARINA 1.2.840.114 [id number] Univers 00:00:00 00:00:00 Only Unassigned, CANDACE [id number] ity of [place] [facility] 4.2.7.2.686 [place] as [phone] [address] 2020-10-21 2020-10-21 [facility] [id number] Univers 16:30:00 16:30:00 DELORES ity of [facility] 2020-09-30 2020-09-30 Telephone [facility] 1.2.840.114 [id number] Univers 00:00:00 00:00:00 [facility] [id number] it y of [place] 4.2.7.2.686 [place] Professio [phone] [address] One 2020-09-27 2020-09-27 Telephone [facility] 1.2.840.114 [id number] Univers 00:00:00 00:00:00 [facility] [id number] it y of [place] [id number] [place] as Professio [phone] [address] One 2020-08-29 2020-08-29 Telephone [facility] 1.2.840.114 [id number] Univers 00:00:00 00:00:00 [facility] [id number] it y of [place] [id number] [place] Professio [phone] [address] One 2020-08-25 2020-08-25 [facility] 1.2.840.114 [id number] Univers 00:00:00 00:00:00 [facility] [id number] it y of [place] [id number] [place] Professio [phone] [address] One 2020-08-16 2020-08-16 [facility] 1.2.840.114 [id number] Univers 00:00:00 00:00:00 [facility] [id number] it y of [place] [id number] [place] Professio [phone] [address] Office [facility] 2020-07-27 2020-07-27 Refill [facility] 1.2.840.114 [id number] Univers 00:00:00 00:00:00 [facility] [id number] it y of [place] [id number] [place] Professio [phone] [address] One 2020-07-22 2020-07-22 Telephone [facility] 1.2.840.114 [id number] Univers 00:00:00 00:00:00 [place] 350.1.13.10 i ty of [place] 4[place]2.7.2.686 [place] Profess[place] [phone] [address] 2020-06-25 2020-06-25 Orders Doctor CARINA 1.2.840.114 [id number] Univers 00:00:00 00:00:00 Only Unassigned, CANDACE 350.1.13.10 ity of [place] [facility] 4.2.7.2.686 [place] as [phone] [address] 2020-06-24 2020-06-24 Telephone [facility] 1.2.840.114 [id number] Univers 00:00:00 00:00:00 [facility] 350.1.13.10 it y of [place] [place] [id number] Deejay as Professio [phone] [address] Office Building One 2020-06-17 2020-06-17 Office [facility] 1.2.840.114 [id number] Univers 16:00:06 16:15:06 Visit [facility] [id number] it y of [place] [id number] Deejay as Professio [phone] [address] Office [facility] One 2020-06-17 2020-06-17 [facility] [id number] Univers 16:00:00 16:00:00 DELORES yolanda [facility] 2020-06-17 2020-06-17 Telephone RickRUST 1.2.840.114 [id number] Univers 00:00:00 00:00:00 [facility] [id number] it y of [place] [id number] Deejay as Professio [phone] [address] One 2020-06-13 2020-06-13 [facility] [id number] Univers 13:45:00 13:45:00 DELORES [facility] 2020-06-01 2020-06-01 Patient BaljitRUST 1.2.840.114 [id number] Univers 00:00:00 00:00:00 Outreach [facility] [id number] i ty of [facility] [place].2.[place] [phone] [address] 2020-05-27 2020-05-27 [facility] [id number] Univers 11:30:00 11:30:00 DELORES [facility] 2020-05-27 2020-05-27 Refyazmin RickRUST 1.2.840.114 [id number] Univers 00:00:00 00:00:00 [facility] [id number] it y of [place] [id number] Deejay as Professio [phone] [address] One 2020-05-27 2020-05-27 Refill RickRUST 1.2.840.114 [id number] Univers 00:00:00 00:00:00 [facility] [id number] it y of [place] [id number] Deejay as Professio [phone] [address] One 2020-05-27 2020-05-27 Refyazmin BarnardRUST 1.2.840.114 [id number] Univers 00:00:00 00:00:00 [facility] [id number] it y of Surgical [id number] Deejay as Specialti [phone] Sd dical es 198 [facility] 2020-05-27 2020-05-27 [facility] 1.2.840.114 [id number] Univers 00:00:00 00:00:00 [facility] [id number] it y of [place] [id number] Deejay as Professio [phone] Sd dical nal [address] Office [facility] One 2020-05-26 2020-05-26 [facility] 1.2.840.114 [id number] Univers 00:00:00 00:00:00 [facility] [id number] it y of [place] [id number] Deejay as Professio [phone] Sd dical nal [address] Office [facility] One 2020-05-26 2020-05-26 [facility] 1.2.840.114 [id number] Univers 00:00:00 00:00:00 [facility] [id number] it y of [place] [id number] Deejay as Professio [phone] Sd dical nal [address] Office [facility] One 2020-05-23 2020-05-23 [facility] 1.2.840.114 [id number] Univers 00:00:00 00:00:00 [facility] [id number] it y of [place] [id number] Deejay as Professio [phone] Sd dical nal [address] Office Building One 2020-04-24 2020-04-24 [facility] 1.2.840.114 [id number] Univers 00:00:00 00:00:00 [facility] [id number] it y of [place] [id number] Deejay as Professio [phone] Sd dical nal [address] Office [facility] One 2020-04-24 2020-04-24 Isaiyazmin BarnardRUST 1.2.840.114 [id number] Univers 00:00:00 00:00:00 [facility] 350.1.13.10 it y of Surgical [id number] Deejay as Specialti [phone] Sd jesusal es 198 [facility] 2020-04-19 2020-04-19 Isaiyazmin GreyRUST 1.2.840.114 [id number] Univers 00:00:00 00:00:00 [facility] [id number] it y of [place] [id number] Deejay as Professio [phone] Sd dical nal 044 [facility] One 2020-03-28 2020-03-28 Isaiyazmin GreyRUST 1.2.840.114 [id number] Univers 00:00:00 00:00:00 [facility] 350.1.13.10 it y of [place] [id number] Deejay as Professio [phone] Sd dical nal 044 [facility] One 2020-03-22 2020-03-22 Isaiyazmin GreyRUST 1.2.840.114 [id number] Univers 00:00:00 00:00:00 [facility] 350.1.13.10 it y of [place] [id number] Deejay as Professio [phone] Sd nav nal Kadie [facility] One 2020-02-15 2020-02-15 Lacy GreyRUST 1.2.840.114 [id number] Univers 00:00:00 00:00:00 [facility] 350.1.13.10 it y of [place] [id number] Deejay as Professio [phone] Sd diccole nal 044 [facility] One 2020-02-11 2020-02-11 Lacy BarnardRUST 1.2.840.114 [id number] Univers 00:00:00 00:00:00 [facility] 350.1.13.10 it y of Surgical [id number] Deejay as Specialti [phone] Sd dical es 198 [facility] 2020-01-22 2020-01-22 Ref[facility] 1.2.840.114 [id number] Univers 00:00:00 00:00:00 [facility] 350.1.13.10 it y of [place] [id number] Deejay as Professio [phone] Sd dical nal [address] Office Building One 2019-12-27 2019-12-27 Refill [facility] 1.2.840.114 [id number] Univers 00:00:00 00:00:00 [facility] 350.1.13.10 it y of [place] [id number] Deejay as Professio [phone] Sd dical nal [address] Office Building One 2019-12-27 2019-12-27 Refill LacieRUST 1.2.840.114 [id number] Univers 00:00:00 00:00:00 [facility] 350.1.13.10 ity of [place] 4.2.7.2.686 Deejay as Professio [phone] Sd dical nal [address] Building One 2019-12-21 2019-12-21 [facility] 1.2.840.114 [id number] Univers 00:00:00 00:00:00 [facility] 350.1.13.10 it y of [place] 4.2.7.2.686 Deejay as Professio [phone] Sd dical nal [address] Office Building One 2019-12-14 2019-12-14 Office RickRUST 1.2.840.114 [id number] Univers 13:10:49 13:25:49 Visit [facility] 350.1.13.10 it y of [place] 4.2.7.2.686 Deejay as Professio [phone] Sd dical nal [address] Building One 2019-12-14 2019-12-[address] [facility] [id number] Univers 13:15:00 13:15:00 DELORES ity of [facility] 2019-11-24 2019-11-24 Telephone [facility] 1.2.840.114 [id number] Univers 00:00:00 00:00:00 Delores [place] 350.1.13.10 i ty of [place]josh[place]2.7.2.[place] Profess[place] [phone] Sd jesus[address] 2019-11-20 2019-11-[address] [facility] 1.2.840.114 [id number] Univers 00:00:00 00:00:00 [facility] 350.1.13.10 it y of [place] [id number] Deejay as Professio [phone] [address] Office [facility] One 2019-10-23 2019-10-23 [facility] 1.2.840.114 [id number] Univers 00:00:00 00:00:00 [facility] 350.1.13.10 it y of [place] [id number] Deejay as Professio [phone] [address] Office [facility] One 2019-10-11 2019-10-[address] [facility] LacieRUST 1.2.840.114 [id number] Univers 00:00:00 00:00:00 [facility] 350.1.13.10 ity of [place] 4.2.7.2.686 Deejay as Professio [phone] [address] Office [facility] One 2019-10-11 2019-10-11 [facility] 1.2.840.114 [id number] Univers 00:00:00 00:00:00 [facility] 350.1.13.10 it y of [place] 4.2.7.2.686 Deejay as Professio [phone] [address] Office [facility] One 2019-09-18 2019-09-[address] [facility] GreyRUST 1.2.840.114 [id number] Univers 00:00:00 00:00:00 [facility] 350.1.13.10 it y of [place] 4.2.7.2.686 Deejay as Professio [phone] Me [address] 2019-08-28 2019-08-28 Telemedici [facility] 1.2.840.114 [id number] Univers 15:43:25 15:58:25 ne Visit Delores [place]ño 350.1.13.10 ity of [place]2.7.2.[place] Profess[place] [phone] [address] 2019-08-28 2019-08-28 [facility] [id number] Univers 15:15:00 15:15:00 DELORES [facility] 2019-08-25 2019-08-25 Outpatient R [facility] [id number] Univers 10:15:00 10:15:00 DELORES [facility] 2019-08-19 2019-08-19 [facility] 1.2.840.114 [id number] Univers 00:00:00 00:00:00 Delores [place] 350.1.13.10 it y of Nikita [place] 4.2.7.2.686 Deejay as Professio [phone] [address] 2019 2019 Telephone [facility] 1.2.840.114 [id number] Univers 00:00:00 00:00:00 Delores Avendaño 350.1.13.10 i ty of [place].2.[place] Profess[place] [phone] [address] 2019-07-29 2019-07-29 Refill LacieRUST 1.2.840.114 [id number] Univers 00:00:00 00:00:00 [facility] 350.1.13.10 ity of [place] 4.2.7.2.686 Deejay as Professio [phone] [address] 2019-07-29 2019-07-29 Refill [facility] 1.2.840.114 [id number] Univers 00:00:00 00:00:00 Delores Smith 350.1.13.10 it y of Nikita [place]endaño 4.2.7.2.686 Deejay as Professio [phone] [place] [address] [address] Office [facility] One 2019-07-21 2019-07-21 [facility] 1.2.840.114 [id number] Univers 00:00:00 00:00:00 [facility] 350.1.13.10 it y of [place] 4.2.7.2.686 Deejay as Professio [phone] [address] Office [facility] One 2019-06-29 2019-06-29 [facility] [id number] Univers 16:00:00 16:00:00 DELORES ity of [facility] 2019-06-16 2019-06-16 [facility] 1.2.840.114 [id number] Univers 00:00:00 00:00:00 [facility] 350.1.13.10 it y of [place] 4.2.7.2.686 Deejay as Professio [phone] [address] Office [facility] One 2019-05-25 2019-05-25 [facility] 1.2.840.114 [id number] Univers 00:00:00 00:00:00 [facility] 350.1.13.10 it y of [place] 4.2.7.2.686 Deejay as Professio [phone] [address] Office [facility] One 2019-05-01 2019-05-01 [facility] 1.2.840.114 [id number] Univers 00:00:00 00:00:00 [facility] 350.1.13.10 it y of [place] 4.2.7.2.686 Deejay as Professio [phone] [facility] nal [address] [place] [address] Office [facility] One 2019-04-26 2019-04-[address] [facility] MedellinRUST 1.2.840.114 [id number] Univers 00:00:00 00:00:00 [facility] 350.1.13.10 ity of [place] 4.2.7.2.686 Deejay as Professio [phone] [address] Office Building One 2019-04-20 2019-04-20 Refill RickRUST 1.2.840.114 [id number] Univers 00:00:00 00:00:00 [facility] 350.1.13.10 it y of [place] 4.2.7.2.686 Deejay as Professio [phone] Sd dical nal [address] Office Building One 2018-11-21 2018-11-21 Refyazmin GreyRUST 1.2.840.114 [id number] Univers 00:00:00 00:00:00 [facility] 350.1.13.10 it y of [place] 4.2.7.2.686 Deejay as Professio [phone] Sd dical nal [address] Office Building One 2018-10-22 2018-10-22 Office RickRUST 1.2.840.114 [id number] Univers 16:08:03 16:28:12 Visit [facility] 350.1.13.10 it y of [place] 4.2.7.2.686 Deejay as Professio [phone] Sd dical nal [address] Office [facility] One 2018-10-22 2018-10-22 Orders Doctor CARINA 1.2.840.114 [id number] Univers 00:00:00 00:00:00 Only Unassigned, CANDACE 350.1.13.10 ity of [facility] 4.2.7.2.686 Deejay as [phone] [place] [address] [address] 2018-10-19 2018-10-19 Refyazmin AkilRUST 1.2.840.114 [id number] Univers 00:00:00 00:00:00 [facility] 350.1.13.10 it y of Surgical 4.2.7.2.686 Deejay as Specialti [phone] Sd dical es [address] [place] Results This patient has no known results.
--- NOTE | 2022-04-28 17:51 | EDPHYS ---
Physician Documentation [facility] Name: Reji Keith Age: 61 yrs Sex: Male : 1960 Arrival Date: 04/28/2022 Time: 17:07 Bed 8 Private MD: ED Physician Floyd Palma HPI: 04/28 17:47 This 61 yrs old Male presents to ER via Ambulatory with complaints of cellulitis. rn 17:47 The patient presents with cellulitis of the anterior aspect of right shoulder. rn Description: erythematous. Onset: The symptoms/episode began/occurred 3 day(s) ago. Possible cause(s): unknown. Associated signs and symptoms: Pertinent positives: erythema, Pertinent negatives: fever, vomiting. Modifying factors: the symptoms are alleviated by nothing, the symptoms are aggravated by touching. Severity of symptoms: At their worst the symptoms were mild, in the emergency department the symptoms are unchanged. The patient has not experienced similar symptoms in the past. Pt with surgery to right shoulder in February, juan r already removed, noticed some redness near one edge of wound, no drainage, no pain in shoulder itself, unable to get a hold of surgeon. No chills. . Historical: - Allergies: 17:11 No Known Allergies; hb - PMHx: 17:11 Arthritis; enlarged prostate; hb - PSHx: 17:11 Shoulder - Right; hb - Immunization history:: Adult Immunizations up to date. - Social history:: Smoking status: unknown. - Family history:: not pertinent. - Hospitalizations: : No recent hospitalization is reported. ROS: 17:47 Constitutional: Negative for fever, chills, and weight loss, MS/Extremity: Negative for rn injury and deformity, Skin: + redness near surgical wound Exam: 17:47 Constitutional: This is a well developed, well nourished patient who is awake, alert, rn and in no acute distress. Cardiovascular: Regular rate and rhythm. No pulse deficits. Skin: Warm, dry, + mild erythema and warmth near proximal edge of surgical wound, no drainage, no fluctuance, painless ROM of right shoulder/arm. Vital Signs: 17:09 BP 164 / 86; Pulse 85; Resp 16; Temp 97.1; Pulse Ox 98% on R/A; Weight 94.35 kg; Height hb 5 ft. 9 in. (175.26 cm); Pain 3/10; 17:09 Body Mass Index 30.72 (94.35 kg, 175.26 cm) hb MDM: 17:34 Patient medically screened. rn 17:47 Differential diagnosis: cellulitis. Data reviewed: vital signs, nurses notes, and as a rn result, I will discharge patient. Counseling: I had a detailed discussion with the patient and/or guardian regarding: the historical points, exam findings, and any diagnostic results supporting the discharge/admit diagnosis, the need for outpatient follow up, to return to the emergency department if symptoms worsen or persist or if there are any questions or concerns that arise at home. Special discussion: I discussed with the patient/guardian in detail that at this point there is no indication for admission to the hospital. It is understood, however, that if the symptoms persist or worsen the patient needs to return immediately for re-evaluation. Based on the history and exam findings, there is no indication for further emergent testing or inpatient evaluation. I discussed with the patient/guardian the need to see the primary care provider for further evaluation of the symptoms. ED course: Will treat with abx, no evidence of joint infection or abscess, will given abx and have him f/u with his surgeon. Pt planning on calling emergency line and driving to clinic tomorrow if doesn't answer. . Administered Medications: No medications were administered Disposition Summary: 04/28/22 17:51 Discharge Ordered Location: Home rn Problem: new rn Symptoms: are unchanged rn Condition: Stable rn Diagnosis - Cellulitis of right upper limb rn Followup: rn - With: Private Physician - When: Tomorrow - Reason: Recheck today's complaints, Re-evaluation by your physician Discharge Instructions: - Discharge Summary Sheet rn - Cellulitis, Adult rn Forms: - Medication Reconciliation Form rn - Thank You Letter rn - Antibiotic fall internship - Prescription Opioid Use rn Prescriptions: - Cephalexin 500 mg Oral Capsule - take 1 capsule by ORAL route every 12 hours for 10 days; 20 capsule; Refills: rn 0, Product Selection Permitted - Bactrim DS 800-160 mg Oral Tablet - take 1 tablet by ORAL route every 12 hours for 10 days; 20 tablet; Refills: 0, rn Product Selection Permitted - Tramadol 50 mg Oral Tablet - take 1 tablet by ORAL route every 8 hours as needed; 12 tablet; Refills: 0, rn Product Selection Permitted Signatures: Floyd Palma MD MD rn Kenzie Sim, CARMEN RN hb Dallas Reaves, CARMEN RN bp
--- NOTE | 2022-04-28 17:51 | ER ---
Nurse's Notes [facility] Name: Reji Keith Age: 61 yrs Sex: Male : 1960 Arrival Date: 04/28/2022 Time: 17:07 Bed 8 Private MD: Diagnosis: Cellulitis of right upper limb Presentation: 04/28 17:09 Chief complaint: Patient states: "I had shoulder surgery March 22, I have a red hb spot on the incision that keeps getting bigger and looks infected." Reports right shoulder pain 06/01. Coronavirus screen: At this time, the client does not indicate any symptoms associated with coronavirus-19. Ebola Screen: No symptoms or risks identified at this time. Initial Sepsis Screen: Does the patient meet any 2 criteria? No. Patient's initial sepsis screen is negative. Does the patient have a suspected source of infection? No. Patient's initial sepsis screen is negative. Risk Assessment: Do you want to hurt yourself or someone else? Patient reports no desire to harm self or others. Onset of symptoms was April 28, 2022. 17:09 Method Of Arrival: Ambulatory hb 17:09 Acuity: SELAM 3 hb Triage Assessment: 17:10 General: Appears in no apparent distress. uncomfortable, Behavior is cooperative, bp appropriate for age, anxious. Pain: Complains of pain in anterior aspect of right shoulder. EENT: No deficits noted. Neuro: No deficits noted. Cardiovascular: No deficits noted. Respiratory: No deficits noted. GI: Reports nausea. : No signs and/or symptoms were reported regarding the genitourinary system. Derm: Reports pain. Musculoskeletal: No deficits noted. Historical: - Allergies: 17:11 No Known Allergies; hb - PMHx: 17:11 Arthritis; enlarged prostate; hb - PSHx: 17:11 Shoulder - Right; hb - Immunization history:: Adult Immunizations up to date. - Social history:: Smoking status: unknown. - Family history:: not pertinent. - Hospitalizations: : No recent hospitalization is reported. Screenin:10 [facility] ED Fall Risk Assessment (Adult) History of falling in the last 3 months, bp including since admission No falls in past 3 months (0 pts). Abuse screen: Denies threats or abuse. Denies injuries from another. Nutritional screening: No deficits noted. Tuberculosis screening: No symptoms or risk factors identified. Assessment: 17:10 General: SEE TRIAGE NOTE. bp 18:07 Reassessment: PT DC HOME AMBULATORY WITH FAMILY. bp Vital Signs: 17:09 BP 164 / 86; Pulse 85; Resp 16; Temp 97.1; Pulse Ox 98% on R/A; Weight 94.35 kg; Height hb 5 ft. 9 in. (175.26 cm); Pain 3/10; 17:09 Body Mass Index 30.72 (94.35 kg, 175.26 cm) hb ED Course: 17:07 Patient arrived in ED. am2 17:10 Patient has correct armband on for positive identification. Bed in low position. Call bp light in reach. Side rails up X2. Adult w/ patient. 17:11 Triage completed. hb 17:11 Arm band placed on. hb 17:14 Dallas Reaves, RN is Primary Nurse. bp 17:34 Floyd Palma MD is Attending Physician. rn 18:07 No provider procedures requiring assistance completed. Patient did not have IV access bp during this emergency room visit. Administered Medications: No medications were administered Medication: 18:07 VIS not applicable for this client. bp Outcome: 17:51 Discharge ordered by . rn 18:07 Discharged to home ambulatory, with family. bp 18:07 Condition: stable 18:07 Discharge instructions given to patient, Instructed on discharge instructions, follow up and referral plans. medication usage, Demonstrated understanding of instructions, follow-up care, medications, Prescriptions given X 3. 18:08 Patient left the ED. bp Signatures: Floyd Palma MD MD rn Baxter, Heather RN RN Eleni Sun am2 Dallas Reaves, RN RN bp
[2022-04-28 18:27] VITALS: BP 164/86; TEMP 97.1; O2SAT 98
== END 2022-04-28 18:08 | disposition home or self-care (01) ==
LOC: ER 17:06
DX: L03.113 Cellulitis of right upper limb (principal)
CPT/HCPCS: 99282